=== PATIENT | male | born 1950 | race Hispanic/Latino ===

== ENCOUNTER 2020-01-23 05:51 | Emergency (ER) | payer MEDICARE ==
[~2020-01-23] VITALS: Ht 165.1 cm; Wt 83.9 kg
--- OUTSIDE RECORDS SUMMARY | 2020-01-23 05:53 | XMS REPORT ---
[facility] Unknown Phone Unavailable Care Team Providers Care [facility] Name Role Phone Jace ALTAMIRANO Unavailable Unavailable Problems This patient has no known problems. Allergies, Adverse Reactions, Alerts This patient has no known allergies or adverse reactions. Medications This patient has no known medications. Results Test Description Test Time Test Comments Text Results Atomic Results Result Comments CHEST SINGLE (PORTABLE) [place] [address] Patient Name: NIK NEELY MR #: [id number] : 1950 Age/Sex: 67/M Acct #: [id number] Req #: [id number] Adm Physician: Ordered by: TRINIDAD ALTAMIRANO MD Report #: [id number] Location: ER Room/Bed: Procedure: [id number] DX/CHEST SINGLE (PORTABLE) Exam Date: 09/22/17 Exam Time: 1000 REPORT STATUS: Signed PROCEDURE: A single AP view of the chest. COMPARISON: Portable chest 10/26/2016. INDICATIONS: ABDOMINAL PAIN FINDINGS: Lines/tubes: None. Lungs: The lungs are well inflated and clear. There is no evidence of pneumonia or pulmonary edema. Pleura: There is no pleural effusion or pneumothorax. Heart and mediastinum: The heart and the mediastinum are unremarkable. Bones: No acute bony abnormality. Degenerative changes of the thoracic spine. IMPRESSION: No acute radiographic abnormality. Dictated by: Solis Aleman M.D. on 09/22/2017 at 11:04 Electronically approved by: Solis Aleman M.D. on 09/22/2017 at 11:04 Dictated By: SOLIS ALEMAN MD 03 Transcribed By: FLAVIA on 09/22/171103 COPY TO: TRINIDAD ALTAMIRANO MD US GALLBLADDER [place] [address] Patient Name: NIK LAMBERT MR #: [id number] : 1950 Age/Sex: 67/M Req #: [id number] Adm Physician: Ordered by: TRINIDAD ALTAMIRANO MD Report #: [id number] Location: ER Room/Bed: Procedure: [id number] US/US GALLBLADDER Exam Date: Exam Time: REPORT STATUS: Signed PROCEDURE: GALLBLADDER ULTRASOUND COMPARISON: None. INDICATIONS: Pain. FINDINGS: Liver: 16.5 cm. Increased hepatic parenchymal echogenicity. No focal mass. Main portal vein: 1.3 cm. Hepatopedal flow. Gallbladder: No echogenic calculi, gallbladder wall thickening, or pericholecystic fluid. Common Bile Duct: 3.0 mm. No echogenic filling defect. Sonographic Belcher's sign: Negative. Right kidney: 12.7 cm. No solid or cystic mass, echogenic calculi, or hydronephrosis. Normal parenchymal echogenicity. Pancreas: The visualized portions of the pancreas are normal. Inferior vena cava: Normal. Aorta: Normal. Ascites: None. CONCLUSION: 1. No acute sonographic abnormality. 2. Hepatic steatosis. Dictated by: Solis Aleman M.D. on 09/22/2017 at 11:56 Electronically approved by: Solis Aleman M.D. on 09/22/2017 at 11:56 Dictated By: SOLIS ALEMAN MD [id number] Transcribed By: FLAVIA on 09/22/17 1156 COPY TO: TRINIDAD ALTAMIRANO MD
[2020-01-23] MEDS ORDERED: CLONIDINE HCL 0.2 MG TAB PO ONE (06:00)
--- NOTE | 2020-01-23 06:49 | Diagnostic Imaging Report ---
EXAMINATION: CHEST 2 VIEWS INDICATION: Cough. COMPARISON: None FINDINGS: TUBES and LINES: None. LUNGS: Low lung volumes. There is no evidence of pneumonia or pulmonary edema. PLEURA: No pleural effusion or pneumothorax. HEART AND MEDIASTINUM: The cardiomediastinal silhouette is unremarkable. BONES AND SOFT TISSUES: No acute osseous lesion. Soft tissues are unremarkable. UPPER ABDOMEN: No free air under the diaphragm. IMPRESSION: No acute thoracic abnormality. Signed by: Dr. Ravindra Sparks MD on 01/23/2020 6:46 AM
[2020-01-23] MEDS ORDERED: HYDRALAZINE HCL 25 MG TAB PO ONE (07:15)
[2020-01-23 07:47] VITALS: BP 164/81
== END 2020-01-23 07:49 | disposition home or self-care (01) ==
LOC: ER 05:51
DX: R05 Cough (principal); J30.2 Other seasonal allergic rhinitis; I16.0 Hypertensive urgency
CPT/HCPCS: 71046; 99284